=== PATIENT | female | born 1945 | race Hispanic/Latino ===

== ENCOUNTER 2017-12-03 11:16 | Outpatient (CLI) | payer MEDICARE ==
[2017-12-03 11:50] LABS: Hematocrit 44.4 % (30.3-42.9); Hemoglobin 14.4 gm/dl (10.1-14.3); Mean Corpuscular HGB Conc 33 % (30-34); Mean Corpuscular Hemoglobin 28 pg (28-32); Mean Corpuscular Volume 86 fl (79-97); Platelet Count 142 K/mm3 (140-440); Red Blood Count 5.17 M/mm3 (3.65-5.03); Red Cell Distribution Width 17.4 % (13.2-15.2)
[2017-12-03 11:59] LABS: Alanine Aminotransferase 14 units/L (7-56); Albumin 3.7 g/dL (3.9-5); BUN/Creatinine Ratio 32; Blood Urea Nitrogen 19 mg/dL (7-17); Calcium 9.2 mg/dL (8.4-10.2); Chol/HDL Ratio 3.94 %; HDL Cholesterol 35 mg/dL (40-59); Hemolysis Index 6; LDL Cholesterol,Direct 93 mg/dL (50-130)
--- NOTE | 2017-12-03 23:23 | Cat Scan Report ---
FINAL REPORT PROCEDURE: CT CHEST W CON TECHNIQUE: Computerized axial tomography of the chest was performed during the IV injection of iodinated nonionic contrast. HISTORY: RIGHT UPPER NODULE COMPARISON: No prior studies are available for comparison. TECHNICAL QUALITY: Satisfactory. FINDINGS: A well-defined nodule measuring 2.6 x 2.2 centimeters is noted in the right upper lobe. There is moderate cardiomegaly. Left lung is clear. Trace bilateral pleural effusions are identified. Aorta is of normal caliber. Coronary arterial calcification is noted. A hypoenhancing lesion measuring 5.8 x 4.7 centimeters is noted involving the left adrenal. Vertebral height is within normal limits IMPRESSION: 2.6 x 2.2 centimeter mass lesion right upper lobe is suspicious for malignancy. Comparison with any prior studies would be of help. Trace right pleural effusion Cardiomegaly with coronary arterial calcification A left adrenal mass lesion measuring 5.8 x 4.7 centimeters is of nonspecific nature. A neoplasm cannot be excluded. This can be further evaluated using pre and post-contrast MRI.
== END 2017-12-03 11:17 | disposition home or self-care (01) ==
LOC: CT 11:16
PROVIDERS: ATTEND Internal Medicine
DX: I51.7 Cardiomegaly (principal); I25.84 Coronary atherosclerosis due to calcified coronary lesion; J90 Pleural effusion, not elsewhere classified; Z88.8 Allergy status to other drugs, medicaments and biological substances
CPT/HCPCS: 36415; 71260; 80053; 80061; 82785; 84436; 84443; 85027; Q9967